=== PATIENT | female | born 1980 | race African-American/Black ===

== ENCOUNTER 2017-01-31 12:01 | Emergency (ER) | payer MEDICAID ==
[~2017-01-31] VITALS: Ht 165.1 cm; Wt 84.0 kg
[2017-01-31 12:14] VITALS: BP 138/78
[2017-01-31] MEDS ORDERED: CYCL10TA7 PO (12:16)
[2017-01-31] MEDS ORDERED: IBUP-2030 PO (12:16)
[2017-01-31] MEDS ORDERED: DEXAMETHASONE 10 MG/ML VIAL IM ONE (13:30)
== END 2017-01-31 13:48 | disposition home or self-care (01) ==
LOC: ER 13:34
DX: L27.0 Generalized skin eruption due to drugs and medicaments taken internally (principal); F17.210 Nicotine dependence, cigarettes, uncomplicated; T48.1X5A Adverse effect of skeletal muscle relaxants [neuromuscular blocking agents], initial encounter; Y92.018 Other place in single-family (private) house as the place of occurrence of the external cause
CPT/HCPCS: 96372; 99283; J1100

== ENCOUNTER 2018-07-30 09:40 | Emergency (ER) | payer MEDICAID, OTHER ==
[~2018-07-30] VITALS: Ht 165.1 cm; Wt 78.0 kg
[~2018-07-30 09:40] MED LIST: CYCL10TA7 PO; IBUP-2030 PO
[2018-07-30] MEDS ORDERED: IBUPROFEN 800MG TABLET PO ONE (11:15)
[2018-07-30 12:30] VITALS: BP 130/69
== END 2018-07-30 12:35 | disposition home or self-care (01) ==
LOC: ER 09:40
DX: M25.562 Pain in left knee (principal); F17.210 Nicotine dependence, cigarettes, uncomplicated; W01.0XXA Fall on same level from slipping, tripping and stumbling without subsequent striking against object, initial encounter; Y93.89 Activity, other specified; Y92.018 Other place in single-family (private) house as the place of occurrence of the external cause
CPT/HCPCS: 73562; 99283; L1830

== ENCOUNTER 2024-09-05 13:30 | Emergency (ER) | payer MEDICAID, OTHER ==
[~2024-09-05] VITALS: Ht 165.1 cm; Wt 81.0 kg
[~2024-09-05 13:30] MED LIST changes: +CYCL10TA21 PO; -CYCL10TA7 PO
[2024-09-05 13:35] VITALS: O2SAT 98
[2024-09-05] MEDS ORDERED: KETO10TA2 MT (15:54)
[2024-09-05 16:09] VITALS: BP 135/85; PULSE 75; RESP 18; TEMP 36.9; O2SAT 100
== END 2024-09-05 16:10 | disposition home or self-care (01) ==
LOC: ER 13:30
DX: D17.24 Benign lipomatous neoplasm of skin and subcutaneous tissue of left leg (principal); Z79.899 Other long term (current) drug therapy
CPT/HCPCS: 29515; 73630; 81025; 99283